=== PATIENT | female | born 1940 | race Caucasian/White ===

== ENCOUNTER 2017-06-18 02:22 | Emergency (ER) | payer MEDICARE, MEDICAID ==
[2017-06-18 04:14] LABS: Anion Gap 13 mmol/L (10-20); BUN (Urea Nitrogen) 11 mg/dL (9.8-20.1); Calc. Creatinine Clearance 0 mL/min (70-130); Calcium 9.1 mg/dL (7.8-10.44); Carbon Dioxide 28 mmol/L (23-31); Chloride 96 mmol/L (98-107); Estimated GFR-MDRD 81; Magnesium 1.9 mg/dL (1.6-2.6)
== END 2017-06-18 05:07 | disposition home or self-care (01) ==
LOC: ERS 02:22
DX: M62.838 Other muscle spasm (principal); I10 Essential (primary) hypertension; E03.9 Hypothyroidism, unspecified; F17.210 Nicotine dependence, cigarettes, uncomplicated
CPT/HCPCS: 36415; 80048; 83735; 93005; 93010; 99283